=== PATIENT | female | born 1970 | race Caucasian/White ===

== ENCOUNTER 2019-08-31 15:53 | Emergency (ER) | payer BC, SELFPAY ==
[2019-08-31 16:13] VITALS: BP 103/67; PULSE 88; RESP 16; TEMP 37.6; O2SAT 98
--- NOTE | 2019-08-31 17:49 | ED.GENADULT ---
HPI - General Adult General Chief complaint: Upper Respiratory Infection Stated complaint: Pos flu Time Seen by Provider: 08/31/19 17:49 Source: patient and RN notes reviewed Mode of arrival: ambulatory Limitations: no limitations History of Present Illness HPI narrative: 48-year-old female with complaints of upper respiratory infection symptoms, body aches, fever, congestion, cough, and intermittent headache (not the worst of her life) for 2 days. Benadryl and Tylenol (last this am) with little relief. Dry cough with intermittent productive cough (unknown color phlegm). Rhinorrhea and nasal congestion. Exacerbating factors consist of smoke exposure. High fevers, highest 103F, orally with intermittent chills. No nausea, vomiting, and abdominal pain. Denies chest pain, dyspnea, coughing up blood, difficulty swallowing, jaw pain, dental pain, facial pain, foreign body sensation, and rash. Archana denies being , LMP she's Menopausal. Some parts of this dictation were generated by voice recognition software and may contain typographical and/or grammatical inaccuracies. Related Data Home Medications Medication Instructions Recorded Confirmed Sinus Pil 08/31/19 aspirin 08/31/19 escitalopram oxalate mg 08/31/19 methotrexate sodium 08/31/19 ustekinumab [Stelara] SUBCUT 08/31/19 Allergies Allergy/AdvReac Type Severity Reaction Status Date / Time metoclopramide Allergy Unknown CAN'T Verified 03/20/19 14:50 CLOSE EYES AND SHAKY Review of Systems Review of Systems: Narrative: CONSTITUTIONAL: Complains of fever, chills. Denies sweats. EYES: Denies visual changes, redness, discharge. ENT: Complains of rhinorrhea, congestion. Denies sore throat, otalgia. CARDIOVASCULAR: Denies chest pain, palpitations, edema. RESPIRATORY: Denies dyspnea, wheezing. Complains of dry cough, intermittent productive cough. GASTROINTESTINAL: Denies abdominal pain, nausea, vomiting, diarrhea. GENITOURINARY: Denies dysuria, hematuria, abnormal discharge. SKIN: Denies rash or itching. MUSCULOSKELETAL: Denies acute back pain, joint pain. Complains of myalgia. NEUROLOGIC: Denies numbness or focal weakness. Complains of intermittent EMERSON. PSYCHIATRIC: Denies anxiety or depression. All systems reviewed & are unremarkable except as noted in HPI and below. PMFSH Past Medical History Medical History (Updated 09/01/19 @ 00:00 by Vesta Dean) Crohn's disease Surgical History Surgical History (Updated 08/31/19 @ 18:05 by UBALDO Wang) Colostomy status History of bowel resection History of cholecystectomy Status post colostomy takedown Family History Family History (Updated 08/31/19 @ 18:05 by UBALDO Wang) Other No significant family history Social History Social History (Updated 08/31/19 @ 18:05 by UBALDO Wang) Smoking status: Never smoker Second hand tobacco smoke exposure: Yes Alcohol intake: never Substance use: never Living arrangements: with family Occupation/Education: occupation Gender identity (if verbalized by the patient): Female Comments At time of signature, agree with nurse past medical, surgical, social, and family history. There is no relevant family history pertinent to the presenting complaint. Exam Narrative: Exam Narrative: GENERAL: This is a well-nourished, well-developed patient, in no apparent distress. Speaks in full sentences and ambulates with steady gait without dyspnea. HEAD: normocephalic, atraumatic. EYES: PERRL. Sclera clear/white. Vision is grossly intact. EARS: External ears normal, auditory canals clear and without drainage, TMs normal without perforation. Hearing grossly intact. NOSE: External nose normal with no obvious nasal discharge, nares with moderate redness and enlarged turbinates, clear rhinorrhea. THROAT: Mucous membranes moist, posterior pharynx with PND, mild erythema, no exudate, and normal tonsils. No draina
== END 2019-08-31 18:05 | disposition home or self-care (01) ==
PROVIDERS: Emergency Provider Nurse Practitioner Family
DX: B34.9 Viral infection, unspecified (principal); K50.90 Crohn's disease, unspecified, without complications
CPT/HCPCS: 87804; 99213; G0463

== ENCOUNTER 2020-07-18 10:15 | Emergency (ER) | payer BC, SELFPAY ==
[2020-07-18 10:25] VITALS: BP 149/78; PULSE 72; RESP 16; TEMP 36.6; O2SAT 100
--- NOTE | 2020-07-18 10:46 | ED.GENADULT ---
HPI - General Adult General Chief complaint: Upper Respiratory Infection Stated complaint: Sore Throat, Ear Pain Time Seen by Provider: 07/18/20 10:46 Source: patient and RN notes reviewed Mode of arrival: ambulatory Limitations: no limitations History of Present Illness HPI narrative: 49-year-old female presents with complaints of upper respiratory infection, sneezing, right otalgia, facial pressure and congestion for the past 4 days. Archana reports symptoms increased with sore throat and sinus pressure over the past 24 hours. Benadryl with relief. No high fevers, drooling, neck or throat swelling. Pain is bilateral. Hurts to swallow. Exacerbation factors consist of eating and drinking. Rhinorrhea and nasal congestion. No voice change. No nausea, vomiting, or abdominal pain. Tolerating liquids well. Denies dyspnea, difficulty swallowing, jaw pain, dental pain, facial pain, foreign body sensation, and rash. LMP post-menopausal. Remains active. The patient reports she have not been diagnosed with COVID-19. The patient reports she is not waiting for the results of a COVID-19 lab test. The patient reports she do not have fever, weakness, or fatigue. The patient reports she do not have a worsening cough or shortness of breath. Denies chest pain. The patient reports she do not have any loss of taste and diarrhea. Denies recent traveling. Denies concerns for COVID-19 or exposures been home with limited outdoor exposure except for essential household needs, work, and return home. At this time, patient is not suspected of having COVID-19. Some parts of this dictation were generated by voice recognition software and may contain typographical and/or grammatical inaccuracies. Related Data Home Medications Medication Instructions Recorded Confirmed Sinus Pil 08/31/19 aspirin 08/31/19 escitalopram oxalate mg 08/31/19 methotrexate sodium 08/31/19 ustekinumab [Stelara] SUBCUT 08/31/19 Vitamin B12 07/18/20 albuterol sulfate 07/18/20 folic acid 07/18/20 loperamide 07/18/20 loratadine mg 07/18/20 montelukast mg 07/18/20 Allergies Allergy/AdvReac Type Severity Reaction Status Date / Time metoclopramide Allergy Unknown CAN'T Verified 03/20/19 14:50 CLOSE EYES AND SHAKY Review of Systems Review of Systems: Narrative: CONSTITUTIONAL: Denies fever, chills, sweats. EYES: Denies visual changes, redness, discharge. ENT: Complains of rhinorrhea, RT otalgia, sore throat, congestion, sneezing. CARDIOVASCULAR: Denies chest pain, palpitations, edema. RESPIRATORY: Denies dyspnea, wheezing. Complains of dry cough. GASTROINTESTINAL: Denies abdominal pain, nausea, vomiting, diarrhea. SKIN: Denies rash or itching. MUSCULOSKELETAL: Denies acute back pain, joint pain, or myalgia. NEUROLOGIC: Denies numbness or focal weakness. PSYCHIATRIC: Denies anxiety or depression. All systems reviewed & are unremarkable except as noted in HPI and below. [facility] Past Medical History Medical History (Updated 07/19/20 @ 00:00 by Vesta Dean) Crohn's disease Post-menopause Surgical History Surgical History (Updated 07/18/20 @ 11:14 by UBALDO Wang) Colostomy status History of bowel resection History of cholecystectomy History of dental surgery Status post colostomy takedown Family History Family History (Updated 07/18/20 @ 11:01 by UBALDO Wang) Other No problems noted. Father Hypertension Heart disease AAA (abdominal aortic aneurysm) Mother Diabetes mellitus Hypertension Robbin's disease Other No significant family history Social History Social History (Updated 07/18/20 @ 11:13 by UBALDO Wang) Smoking status: Former smoker Tobacco type: cigarettes Second hand tobacco smoke exposure: Yes Smoking end date: 12/19/16 Alcohol intake: former Substance use: never Gender identity (if verbalized by the patient): Female Comments
--- NOTE | 2020-07-18 11:06 | PC.NURSE ---
covid test order faxed.
--- NOTE | 2020-07-18 11:07 | PC.NURSE ---
covid test order faxed to [phone] per request of data integrity consultant.
[2020-07-18 11:08] VITALS: BP 149/78; PULSE 72; RESP 16; TEMP 36.6; O2SAT 100
== END 2020-07-18 11:12 | disposition home or self-care (01) ==
PROVIDERS: Emergency Provider Nurse Practitioner Family
DX: J02.9 Acute pharyngitis, unspecified (principal); J01.90 Acute sinusitis, unspecified; Z20.828 Contact with and (suspected) exposure to other viral communicable diseases; Z87.891 Personal history of nicotine dependence; K50.90 Crohn's disease, unspecified, without complications
CPT/HCPCS: 87081; 87804; 87880; 99213; G0463

== ENCOUNTER 2021-04-02 16:16 | Emergency (ER) | payer BC, SELFPAY ==
--- NOTE | ~2021-04-02 | XR_ITS ---
XR chest 2V Surgical clips, right upper quadrant, likely due to cholecystectomy. DATE: 04/02/2021 16:52 INDICATION: Productive cough, congestion. Past smoker. TECHNIQUE: 2 views COMPARISON: 06/10/2013 PA and lateral chest FINDINGS: Normal heart size. No hilar or mediastinal enlargement. No pulmonary infiltrate or consolid ation, pleural effusion or pulmonary vascular congestion or pneumothorax. Probable cholecystectomy. Status post anterior abdominal wall mesh repair. IMPRESSION: No active cardiopulmonary disease Reviewed, dictated and finalized at location A.
[2021-04-02 16:28] VITALS: BP 125/74; PULSE 106; RESP 16; TEMP 38.2; O2SAT 95
--- NOTE | 2021-04-02 16:28 | ED.URI ---
HPI - URI/Sore Throat General Chief Complaint: Upper Respiratory Infection Stated Complaint: Ear Pain,Congestion Time Seen by Provider: 04/02/21 16:28 Source: patient and RN notes reviewed Mode of arrival: ambulatory Limitations: no limitations History of Present Illness HPI Narrative: 50 presents to the [facility] with complaints of I do not feel well. Has had congestion, runny nose, cough. Has a history of asthma, Crohn's. Has taken Tylenol for fever. Symptoms started yesterday Has been using her albuterol inhaler. Patient has concerns for Covid. First vaccine last week. Related Data Home Medications Medication Instructions Recorded Confirmed Sinus Pil 08/31/19 aspirin 08/31/19 escitalopram oxalate mg 08/31/19 methotrexate sodium 08/31/19 ustekinumab [Stelara] SUBCUT 08/31/19 Vitamin B12 07/18/20 albuterol sulfate 07/18/20 folic acid 07/18/20 loperamide 07/18/20 loratadine mg 07/18/20 montelukast mg 07/18/20 Allergies Allergy/AdvReac Type Severity Reaction Status Date / Time metoclopramide Allergy Unknown CAN'T Verified 04/02/21 16:41 CLOSE EYES AND SHAKY Review of Systems Review of Systems: All systems reviewed & are unremarkable except as noted in HPI and below Constitutional: Constitutional: Reports as per HPI, Denies chills and Reports fever(s) Eyes: Eyes: Reports no additional eye complaints ENT: Reports system reviewed and no additional complaints, except as documented Cardiovascular: Cardiovascular: Reports no additional cardiovascular complaints Respiratory: Respiratory: Reports as per HPI, Reports cough, Reports dyspnea and Reports wheezing Gastrointestinal: Gastrointestinal: Reports no additional gastrointestinal complaints, Denies abdominal pain, Denies nausea and Denies vomiting Musculoskeletal: Musculoskeletal: Reports no additional musculoskeletal complaints Integumentary/Breasts: Skin/Breast: Reports system reviewed and no additional complaints, except as docu Neurologic: Reports system reviewed and no additional complaints, except as documented Psychiatric: Psychiatric: Reports no additional psychiatric complaints Allergic/Immunologic: Allergic/Immunologic: Reports no additional allergic/immunologic complaints [facility] Past Medical History Medical History (Updated 04/02/21 @ 17:43 by Celia Christopher) Crohn's disease Post-menopause Surgical History Surgical History Colostomy status History of bowel resection History of cholecystectomy History of dental surgery Status post colostomy takedown Family History Family History Other No problems noted. Father Hypertension Heart disease AAA (abdominal aortic aneurysm) Mother Diabetes mellitus Hypertension Robbin's disease Other No significant family history Social History Social History Smoking status: Former smoker Tobacco type: cigarettes Second hand tobacco smoke exposure: Yes Smoking end date: 12/19/16 Alcohol intake: former Substance use: never Gender identity (if verbalized by the patient): Female Sexual Orientation (if Verbalized by the Patient): Straight or Heterosexual Comments at the time of my signature, I reviewed and agree with the nursing past medical, surgical, social, and family history. There is no relevant family history pertinent to the patient complaint. Exam Const: General: alert and ill appearing acutely Nutritional Appearance: well nourished Orientation/consciousness: patient oriented x3 HENMT: Head: normal to inspection Ears: external ears normal, TM's normal bilaterally and EAC's normal Eyes: Pupils: Equal, round and reactive pupils present Neck: Neck: normal visual inspection, no lymphadenopathy and no meningeal signs Chest: Chest palpation & inspection: normal inspection of the
[2021-04-02 16:50] VITALS: BP 138/70; PULSE 103; RESP 25; O2SAT 95
[2021-04-02] MEDS: predniSONE 20 MG TABLET 40 MG PO (16:52)
[2021-04-02] MEDS: ALBUTEROL SULFATE NEB 2.5 MG/3 ML INH INHALATION (16:52)
[2021-04-02] MEDS: IPRATROPIUM BR 0.02% INH SOLN 0.5 MG/2.5 ML VIAL INHALATION (16:54)
[2021-04-02 17:38] VITALS: BP 124/68; PULSE 96; RESP 22; TEMP 37.8; O2SAT 97
[2021-04-02 17:57] VITALS: TEMP 37.8
[2021-04-02] MEDS: ACETAMINOPHEN 500 MG TABLET 1000 MG PO (17:57)
[2021-04-03 22:41] LABS: SARS-CoV-2 RNA PCR Negative
== END 2021-04-02 18:08 | disposition home or self-care (01) ==
PROVIDERS: Emergency Provider Nurse Practitioner
DX: B34.9 Viral infection, unspecified (principal); J40 Bronchitis, not specified as acute or chronic; Z87.891 Personal history of nicotine dependence; J45.909 Unspecified asthma, uncomplicated; K50.90 Crohn's disease, unspecified, without complications
CPT/HCPCS: 71046; 87081; 87880; 99213; A9270; C9803; G0463; J7512; U0003; U0005

== ENCOUNTER 2021-08-07 15:50 | Emergency (ER) | payer BC, SELFPAY ==
[2021-08-07 15:59] VITALS: BP 152/81; PULSE 81; RESP 16; TEMP 37.3; O2SAT 99
--- NOTE | 2021-08-07 16:06 | ED.URI ---
HPI - URI/Sore Throat General Chief Complaint: Upper Respiratory Infection Stated Complaint: sore throat Time Seen by Provider: 08/07/21 16:06 Source: patient Mode of arrival: ambulatory Limitations: no limitations History of Present Illness HPI Narrative: Archana Riley is a 50 yo female with a PMH of Crohn's, depression, who has been treated recently for for both bronchitis and with a Z-Ramon, steroids from PCP who is now here with sore throat that she claims is swelling that just started this afternoon. She does appear to have swollen lymph nodes and states she feels like her throat is on fire. We will do strep test Related Data Home Medications Medication Instructions Recorded Confirmed aspirin 08/31/19 escitalopram oxalate mg 08/31/19 methotrexate sodium 08/31/19 ustekinumab [Stelara] SUBCUT 08/31/19 Vitamin B12 07/18/20 albuterol sulfate 07/18/20 folic acid 07/18/20 Allergies Allergy/AdvReac Type Severity Reaction Status Date / Time metoclopramide Allergy Unknown CAN'T Verified 08/07/21 15:54 CLOSE EYES AND SHAKY Review of Systems Review of Systems: CONSTITUTIONAL: Denies fever, chills, sweats. EYES: Denies visual changes, redness, discharge. ENT: Denies rhinorrhea, congestion, has sore throat, otalgia. Enlarged lymph nodes CARDIOVASCULAR: Denies chest pain, palpitations, edema. RESPIRATORY: Denies dyspnea, wheezing, cough GASTROINTESTINAL: Denies abdominal pain, nausea, vomiting, diarrhea. GENITOURINARY: Denies dysuria, hematuria, abnormal discharge SKIN: Denies rash or itching. NEUROLOGIC: Denies numbness, or focal weakness. PSYCHIATRIC: Denies anxiety or depression. [facility] Past Medical History Medical History Crohn's disease Post-menopause Surgical History Surgical History Colostomy status History of bowel resection History of cholecystectomy History of dental surgery Status post colostomy takedown Family History Family History Other No problems noted. Father Hypertension Heart disease AAA (abdominal aortic aneurysm) Mother Diabetes mellitus Hypertension Robbin's disease Other No significant family history Social History Social History Smoking status: Former smoker Tobacco type: cigarettes Second hand tobacco smoke exposure: Yes Smoking end date: 12/19/16 Alcohol intake: former Substance use: never Gender identity (if verbalized by the patient): Female Sexual Orientation (if Verbalized by the Patient): Straight or Heterosexual Comments At time of signature, I agree with nursing past medical, surgical, social and family history. There is no relevant family history pertinent to the presenting complaint. Exam Narrative: GENERAL: This is a well-nourished, well-developed patient, in mild distress. HEAD: normocephalic, atraumatic. EYES:. Sclera clear/white. Vision is grossly intact. EARS: External ears normal, auditory canals clear and without drainage, TMs normal without perforation. Hearing grossly intact. NOSE: External nose normal without nasal discharge, nares without redness, no rhinorrhea. THROAT: Mucous membranes moist, posterior pharynx mild erythema and she does have submandibular lymph enlargement NECK: Neck supple, tender LN CARDIOVASCULAR: Regular rate and rhythm without murmurs, gallops, or rubs. RESPIRATORY: Clear to auscultation. Breath sounds equal bilaterally. No wheezes, rales, or rhonchi. GASTROINTESTINAL: Abdomen soft, non-tender, SKIN: warm, intact with no suspicious lesions or rash, good texture and turgor. NEURO: awake, alert, and oriented to person, place and time. There were no obvious focal neurologic abnormalities. Steady gait EXTREMITIES: Normal range of motion. BACK: Nontender wi
== END 2021-08-07 16:40 | disposition home or self-care (01) ==
PROVIDERS: Emergency Provider Nurse Practitioner
DX: I88.9 Nonspecific lymphadenitis, unspecified (principal); Z87.891 Personal history of nicotine dependence; K50.90 Crohn's disease, unspecified, without complications
CPT/HCPCS: 87081; 87880; 99213; G0463

== ENCOUNTER 2021-10-23 17:14 | Emergency (ER) | payer BC, SELFPAY ==
--- NOTE | 2021-10-23 17:19 | ED.EAR ---
HPI - Ear Problem General Chief complaint: Ear Stated complaint: ear pain Time Seen by Provider: 10/23/21 17:19 Source: patient Mode of arrival: ambulatory Limitations: no limitations History of Present Illness HPI Narrative: Ms. Salmon is a 50-year-old female patient presenting to the clinic today with complaints of right ear pain, cough, nasal congestion x2 to 3 days. She reports she has had a low-grade temperature as well 99 5 ?F. She denies any known exposure to anyone with Covid or influenza. When asked she stated she did have a scratchy throat as well. She reports that she has been exposed to strep. Related Data Home Medications Medication Instructions Recorded Confirmed aspirin 08/31/19 methotrexate sodium 08/31/19 ustekinumab [Stelara] SUBCUT 08/31/19 albuterol sulfate 07/18/20 folic acid 07/18/20 Allergies Allergy/AdvReac Type Severity Reaction Status Date / Time metoclopramide Allergy Unknown CAN'T Verified 08/07/21 15:54 CLOSE EYES AND SHAKY Review of Systems Review of Systems: Pertinent positives per HPI. Patient denies any rash, headache, visual changes, dizziness, cough, shortness of breath, chest pain, palpitations, nausea, vomiting, diarrhea, constipation, abdominal pain, or any urinary issues. [facility] Past Medical History Medical History Crohn's disease Post-menopause Surgical History Surgical History Colostomy status History of bowel resection History of cholecystectomy History of dental surgery Status post colostomy takedown Family History Family History Other No problems noted. Father Hypertension Heart disease AAA (abdominal aortic aneurysm) Mother Diabetes mellitus Hypertension Robbin's disease Other No significant family history Social History Social History Smoking status: Former smoker Tobacco type: cigarettes Second hand tobacco smoke exposure: Yes Smoking end date: 12/19/16 Alcohol intake: former Substance use: never Gender identity (if verbalized by the patient): Female Sexual Orientation (if Verbalized by the Patient): Straight or Heterosexual Comments At the time of my signature, I reviewed and agree with the nursing past medical, surgical, social, and family history. There is no relevant family history pertinent to the patient complaint. Exam Narrative: General: Well-developed, obese, in no apparent distress Head: Normocephalic, atraumatic Eyes: Pupils equally round and reactive to light bilaterally, EOM intact, sclera and conjunctive clear, no discharge, lids normal Ears: Right TMs intact, dull with mild bulging and fluid noted behind the TM, left TM intact and clear ear canals clear, no drainage, grossly hearing normal. Nose: Nares patent, clear nasal discharge, mild inflammation, no sinus tenderness. Mouth: Oropharynx without lesions or masses, good dentition, MMM. Mild enlargement of tonsils with exudate noted to the right tonsil Neck: Supple, trachea midline, positive enlargement of anterior cervical nodes, no thyroid masses or goiter palpable. Cardio: Regular rate and rhythm, s1 and s2 normal, no murmur appreciated. Resp: Clear to auscultation bilaterally anteriorly and posteriorly, no rhonchi, rales, wheezing or rubs Course Course Emergency Course: Portions of this record may have been created with voice recognition software. Level of Care: Express Care Visit Vital Signs Vital signs: Vital signs reviewed Medical Decision Making MDM Narrative Medical decision making narrative: At the time of visit patient is resting comfortably on exam table. She reports some headache, right ear pain, cough, nasal congestion, and sore throat. Strep screen was compl
[2021-10-23 17:24] VITALS: BP 150/91; PULSE 70; RESP 16; TEMP 36.1; O2SAT 98
[2021-10-23 17:37] VITALS: BP 150/91; PULSE 70; RESP 16; TEMP 36.1; O2SAT 98
== END 2021-10-23 17:59 | disposition home or self-care (01) ==
PROVIDERS: Emergency Provider Nurse Practitioner Family
DX: J06.9 Acute upper respiratory infection, unspecified (principal); H65.01 Acute serous otitis media, right ear; Z87.891 Personal history of nicotine dependence; K50.90 Crohn's disease, unspecified, without complications
CPT/HCPCS: 87081; 87880; 99213; G0463

== ENCOUNTER 2023-08-06 19:20 | Emergency (ER) | payer BC, SELFPAY ==
--- NOTE | 2023-08-06 19:31 | ED.URI ---
HPI - URI/Sore Throat General Chief Complaint: Upper Respiratory Infection Stated Complaint: left ear pain,throat sore Time Seen by Provider: 08/06/23 19:31 Source: patient Mode of arrival: ambulatory Limitations: no limitations History of Present Illness HPI Narrative: Archana is a 52-year-old female patient presenting to the clinic today with complaints of left ear pain, headache, and sore throat. Reports that the ear pain is been going on for 1 week however she developed the headache and sore throat over the last 1-2 days. No fever chills MD elicited complaint: sore throat and nasal congestion Related Data Home Medications Medication Instructions Recorded Confirmed aspirin 81 mg chewable tablet 81 mg DIRECTED 08/31/19 08/06/23 methotrexate sodium 2.5 mg tablet 2.5 mg DIRECTED 08/31/19 08/06/23 ustekinumab 90 mg/mL subcutaneous 90 mg subcut DIRECTED 08/31/19 08/06/23 syringe (Stelara) albuterol sulfate 2.5 mg/3 mL 2.5 mg DIRECTED 07/18/20 08/06/23 (0.083 %) solution for nebulization folic acid 1 mg tablet 1 mg DIRECTED 07/18/20 08/06/23 hydrochlorothiazide 12.5 mg tablet 12.5 mg PO DAILY 08/06/23 08/06/23 loperamide 2 mg capsule 2 mg PO DAILY 08/06/23 08/06/23 Allergies Allergy/AdvReac Type Severity Reaction Status Date / Time metoclopramide Allergy Unknown CAN'T Verified 08/06/23 19:30 CLOSE EYES AND SHAKY Review of Systems Review of Systems: Pertinent positives per HPI. Patient denies any fever, chills, rash, visual changes, dizziness, shortness of breath, chest pain, palpitations, nausea, vomiting, diarrhea, constipation, abdominal pain, or any urinary issues. [facility] Past Medical History Medical History Crohn's disease Post-menopause Surgical History Surgical History Colostomy status History of bowel resection History of cholecystectomy History of dental surgery Status post colostomy takedown Family History Family History Other No problems noted. Father Hypertension Heart disease AAA (abdominal aortic aneurysm) Mother Diabetes mellitus Hypertension Robbin's disease Other No significant family history Social History Social History Smoking status: Former smoker Tobacco type: cigarettes Second hand tobacco smoke exposure: Yes Smoking end date: 12/19/16 Alcohol intake: former Substance use: never Living arrangements: with family Occupation/Education: occupation Gender identity (if verbalized by the patient): Female Sexual Orientation (if Verbalized by the Patient): Straight or Heterosexual Comments At the time of my signature, I reviewed and agree with the nursing past medical, surgical, social, and family history. There is no relevant family history pertinent to the patient complaint. Exam Narrative: General: Well-developed, well nourished, in no apparent distress Head: Normocephalic, atraumatic Eyes: Pupils equally round and reactive to light bilaterally, EOM intact, sclera and conjunctive clear, no discharge, lids normal Ears: TMs intact and congested, ear canals clear, no drainage, grossly hearing normal. Nose: Nares patent, clear discharge, no inflammation, no sinus tenderness. Mouth: Oral pharynx mildly red without lesions or masses, good dentition, MMM. Neck: Supple, trachea midline, no enlargement of anterior or posterior cervical nodes, no thyroid masses or goiter palpable. Cardio: Regular rate and rhythm, s1 and s2 normal, no murmur appreciated. Resp: Clear to auscultation bilaterally, no rhonchi, rales, wheezing or rubs Course Course Emergency Course: Portions of this record may have been created with voice recognition software. Level of Care: [facility] Care Visit [facility]
[2023-08-06 19:35] VITALS: BP 139/82; PULSE 78; RESP 16; TEMP 36.8; O2SAT 97
== END 2023-08-06 20:08 | disposition home or self-care (01) ==
PROVIDERS: Emergency Provider Nurse Practitioner Family
DX: J06.9 Acute upper respiratory infection, unspecified (principal); J02.9 Acute pharyngitis, unspecified; H69.92 Unspecified Eustachian tube disorder, left ear; Z87.891 Personal history of nicotine dependence; K50.90 Crohn's disease, unspecified, without complications; Z79.82 Long term (current) use of aspirin
CPT/HCPCS: 87081; 87880; 99213; G0463

== ENCOUNTER 2023-09-01 08:46 | Emergency (ER) | payer BC, SELFPAY ==
[2023-09-01 09:08] VITALS: BP 140/66; PULSE 74; RESP 16; TEMP 36.9; O2SAT 98
--- NOTE | 2023-09-01 09:38 | ED.EYEPROB ---
HPI - Eye Problem General Stated complaint: Left Eye Irritation Source: patient Mode of arrival: ambulatory Limitations: no limitations History of Present Illness HPI Narrative: 52-year-old female presented for complaint of left eye irritation for about 4 days. She states this started with itching and felt like something was in the eye, and admits to rubbing the eye. The eye his become more reddened, has had blurred vision and light sensitivity, and clear drainage. She states the eye was crusted shut this morning. Using Systane eye drops and allergy drops. Denies headache, n/v/d/f/c. chief complaint: eye pain Related Data Home Medications Medication Instructions Recorded Confirmed aspirin 81 mg chewable tablet 81 mg DIRECTED 08/31/19 09/01/23 methotrexate sodium 2.5 mg tablet 2.5 mg DIRECTED 08/31/19 09/01/23 ustekinumab 90 mg/mL subcutaneous 90 mg subcut DIRECTED 08/31/19 09/01/23 syringe (Stelara) albuterol sulfate 2.5 mg/3 mL 2.5 mg DIRECTED 07/18/20 09/01/23 (0.083 %) solution for nebulization folic acid 1 mg tablet 1 mg DIRECTED 07/18/20 09/01/23 hydrochlorothiazide 12.5 mg tablet 12.5 mg PO DAILY 08/06/23 09/01/23 loperamide 2 mg capsule 2 mg PO DAILY 08/06/23 09/01/23 Allergies Allergy/AdvReac Type Severity Reaction Status Date / Time metoclopramide Allergy Unknown CAN'T Verified 09/01/23 09:16 CLOSE EYES AND SHAKY Review of Systems Review of Systems: CONSTITUTIONAL: Denies body aches, fever, chills EYES:Endorses redness and pain to left eye, FB sensation, photophobia. Denies visual changes ENT: Denies rhinorrhea, congestion, sore throat, or otalgia. CARDIOVASCULAR: Denies chest pain, palpitations RESPIRATORY: Denies cough or dyspnea. GASTROINTESTINAL: Denies abdominal pain, nausea, vomiting, or diarrhea. SKIN: Denies rash, itching, or wounds. MUSCULOSKELETAL: Denies back pain, joint pain, or myalgia. NEUROLOGIC: Denies headache, numbness, tingling, or weakness. All systems reviewed & are unremarkable except as noted in HPI and below PMFSH Past Medical History Medical History Crohn's disease Post-menopause Surgical History Surgical History Colostomy status History of bowel resection History of cholecystectomy History of dental surgery Status post colostomy takedown Family History Family History Other No problems noted. Father Hypertension Heart disease AAA (abdominal aortic aneurysm) Mother Diabetes mellitus Hypertension Robbin's disease Other No significant family history Social History Social History (Updated 09/01/23 @ 10:02 by Mehnaz Grider APRN) Smoking packs per day: 1 Smoking cigarettes per day: 20.0 Smoking status: Current every day smoker Tobacco type: cigarettes Second hand tobacco smoke exposure: Yes Smoking end date: 12/19/16 Alcohol intake: former Substance use: never Living arrangements: with family Occupation/Education: occupation Gender identity (if verbalized by the patient): Female Sexual Orientation (if Verbalized by the Patient): Straight or Heterosexual Comments At time of signature, I have reviewed and agree with nursing past medical, surgical, social and family history unless otherwise noted. Please see nursing chart for further information. There is no relevant family history pertinent to the presenting complaint Exam Narrative: GENERAL: Well-appearing HEAD: Normocephalic, atraumatic. EYES: Left conjunctival injection, no drainage; no eye lid swelling/redness. PERRLA, EOMI. Lid eversion shows no FB. Wood's lamp exam shows corneal abrasion at 6:00 a.m. position over the pupil. ENT: Mucous membranes pink and moist. CHEST: Wheezing throughout HEART: Regular rate and rhythm. SKIN: Warm, dry, no rash. No
== END 2023-09-01 10:00 | disposition home or self-care (01) ==
PROVIDERS: Emergency Provider Nurse Practitioner Family
DX: S05.02XA Injury of conjunctiva and corneal abrasion without foreign body, left eye, initial encounter (principal); X58.XXXA Exposure to other specified factors, initial encounter; K50.90 Crohn's disease, unspecified, without complications
CPT/HCPCS: 99213; A9270; G0463

== ENCOUNTER 2024-02-26 16:20 | Emergency (ER) | payer OTHER, SELFPAY ==
[2024-02-26 16:29] VITALS: BP 144/70; PULSE 71; RESP 16; TEMP 37.2; O2SAT 99
--- NOTE | 2024-02-26 16:29 | ED.URI ---
HPI - URI/Sore Throat General Chief Complaint: Upper Respiratory Infection Stated Complaint: Sinus Time Seen by Provider: 02/26/24 16:29 Source: patient, RN notes reviewed and old records reviewed Mode of arrival: ambulatory Limitations: no limitations History of Present Illness HPI Narrative: 53-year-old female presents to the [facility] with complaints of sinus congestion and a cough that started when she woke up this morning. Patient reports that she is a pack-a-day smoker. States that she did take a cold medication and went back to sleep today. Requesting work note Related Data Home Medications Medication Instructions Recorded Confirmed loperamide 2 mg capsule 2 mg PO DAILY 08/06/23 02/26/24 hydrochlorothiazide 12.5 mg tablet 12.5 mg PO DAILY 02/26/24 02/26/24 loratadine 10 mg tablet 10 mg PO DAILY 02/26/24 02/26/24 Allergies Allergy/AdvReac Type Severity Reaction Status Date / Time metoclopramide Allergy Intermediate CAN'T Verified 02/26/24 16:29 CLOSE EYES AND SHAKY Review of Systems Review of Systems: All systems reviewed & are unremarkable except as noted in HPI and below Constitutional: Constitutional: Reports no additional constitutional complaints Eyes: Eyes: Reports no additional eye complaints ENT: Reports as per HPI and Reports nasal congestion Cardiovascular: Cardiovascular: Reports no additional cardiovascular complaints, Denies chest pain and Denies dyspnea Respiratory: Respiratory: Reports as per HPI, Denies chest congestion, Reports cough, Denies dyspnea and Reports wheezing Gastrointestinal: Gastrointestinal: Reports no additional gastrointestinal complaints, Denies abdominal pain, Denies nausea and Denies vomiting Musculoskeletal: Musculoskeletal: Reports no additional musculoskeletal complaints Integumentary/Breasts: Skin/Breast: Reports system reviewed and no additional complaints, except as docu Neurologic: Reports system reviewed and no additional complaints, except as documented Psychiatric: Psychiatric: Reports no additional psychiatric complaints Allergic/Immunologic: Allergic/Immunologic: Reports no additional allergic/immunologic complaints [facility] Past Medical History Medical History Crohn's disease Post-menopause Surgical History Surgical History Colostomy status History of bowel resection History of cholecystectomy History of dental surgery Status post colostomy takedown Family History Family History Other No problems noted. Father Hypertension Heart disease AAA (abdominal aortic aneurysm) Mother Diabetes mellitus Hypertension Robbin's disease Other No significant family history Social History Social History Smoking packs per day: 1 Smoking cigarettes per day: 20.0 Smoking status: Current every day smoker Tobacco type: cigarettes Second hand tobacco smoke exposure: Yes Smoking end date: 12/19/16 Alcohol intake: former Substance use: never Living arrangements: with family Occupation/Education: occupation Gender identity (if verbalized by the patient): Female Sexual Orientation (if Verbalized by the Patient): Straight or Heterosexual Comments At the time of my signature, I reviewed and agree with the nursing past medical, surgical, social, and family history. There is no relevant family history pertinent to the patient complaint. Exam Const: General: cooperative, healthy appearing, comfortable, no acute distress, well developed, alert and well nourished Nutritional Appearance: well nourished Orientation/consciousness: patient oriented x3 Limitations: no limitations HENMT: Head: normal to inspection Ears: hearing grossly normal bilaterally, external ears normal, TM's normal bilaterally
[2024-02-26 16:30] VITALS: BP 144/70; PULSE 71; RESP 16; TEMP 37.2; O2SAT 99
== END 2024-02-26 17:07 | disposition home or self-care (01) ==
PROVIDERS: Emergency Provider Nurse Practitioner; PCP Nurse Practitioner Family
DX: J40 Bronchitis, not specified as acute or chronic (principal); Z20.822 Contact with and (suspected) exposure to COVID-19; K50.90 Crohn's disease, unspecified, without complications; F17.200 Nicotine dependence, unspecified, uncomplicated
CPT/HCPCS: 87426; 99213; G0463

== ENCOUNTER 2024-07-01 08:47 | Emergency (ER) | payer SELFPAY ==
--- NOTE | 2024-07-01 08:49 | ED_ITS ---
HPI - Skin/Abscess/Foreign Bdy General Chief complaint: Skin/Abscess/Foreign Body Stated complaint: boil on buttocks Time Seen by Provider: 07/01/24 09:10 Source: patient, RN notes reviewed and old records reviewed Mode of arrival: ambulatory Limitations: no limitations History of Present Illness HPI narrative: 53-year-old female with a history of Crohn's presents with an abscess to the right side of the anus. States it started on Thursday, 4 days ago. Has history of abscesses in the same area. Patient reports pain when she sitting. No treatment prior to arrival Due to the concern of a rectal abscess advised patient to go to the emergency room which she is declining at this time Onset (ago): day(s) (4) Related Data Home Medications ?Medication ?Instructions ?Recorded ?Confirmed ?Last Taken ?Type loperamide 2 mg capsule 2 mg PO DAILY 08/06/23 02/26/24 Unknown History hydrochlorothiazide 12.5 mg tablet 12.5 mg PO DAILY 02/26/24 02/26/24 Unknown History loratadine 10 mg tablet 10 mg PO DAILY 02/26/24 02/26/24 Unknown History Allergies Allergy/AdvReac Type Severity Reaction Status Date / Time metoclopramide Allergy Intermediate CAN'T Verified 02/26/24 16:29 CLOSE EYES AND SHAKY Review of Systems Review of Systems: All systems reviewed & are unremarkable except as noted in HPI and below Constitutional: Constitutional: Reports no additional constitutional complaints ENT: Reports system reviewed and no additional complaints, except as documented Cardiovascular: Cardiovascular: Reports no additional cardiovascular complaints, Denies chest pain and Denies dyspnea Respiratory: Respiratory: Reports no additional respiratory complaints, Denies chest congestion, Denies cough and Denies dyspnea Gastrointestinal: Gastrointestinal: Reports as per HPI, Denies abdominal pain, Denies nausea, Denies vomiting and Reports other (rectal pain/ abscess) Integumentary/Breasts: Skin/Breast: Reports system reviewed and no additional complaints, except as docu PMFSH Past Medical History Medical History Post-menopause Crohn's disease Surgical History Surgical History History of dental surgery History of cholecystectomy History of bowel resection Colostomy status Status post colostomy takedown Family History Family History Other No problems noted. Father Hypertension Heart disease AAA (abdominal aortic aneurysm) Mother Diabetes mellitus Hypertension Robbin's disease Other No significant family history Social History Social History Smoking packs per day: 1 Smoking cigarettes per day: 20.0 Smoking status: Current every day smoker Tobacco type: cigarettes Second hand tobacco smoke exposure: Yes Smoking end date: 12/19/16 Alcohol intake: former Substance use: never Living arrangements: with family Occupation/Education: occupation Gender identity (if verbalized by the patient): Female Sexual Orientation (if Verbalized by the Patient): Straight or Heterosexual Comments At the time of my signature, I reviewed and agree with the nursing past medical, surgical, social, and family history. There is no relevant family history pertinent to the patient complaint. Exam Const: General: cooperative, healthy appearing, comfortable, no acute distress, well developed, alert and well nourished Nutritional Appearance: well nourished Orientation/consciousness: patient oriented x3 Limitations: no limitations HENMT: Head: normal to inspection Face/Nose/Sinus: normal facial exam and face symmetric Face and sinus: normal facial exam and face symmetric Eyes: General: appearance normal, both eyes and all related structures Neck: Neck: normal visual inspection and full ROM Chest: Chest palpation & inspection: normal inspection of the chest Resp: Effort & Inspection: normal respiratory effort and able to speak in complete sentences Cardio: Rate: regular rate GI: Rectal Exam: abscess (Possible abscess 2 cm fluctuant, tender area right side of anus), No Rectal prolapse, No fecal impaction and tenderness (Low right side of rectum) Skin: General skin exam: normal color and no rashes or lesions noted Neuro: General: patient oriented x3, gait normal, tone normal, moves all extremities and no meningeal signs Cognition (Neuro): normal cognition Speech: normal speech Gait exam (Neuro): Normal gait present Extrem: General: normal to inspection, full ROM, capillary refill normal and normal gait Psych: Appearance: grossly normal and well kempt Mental Status: mental status grossly normal Speech and movement: Normal speech and movement present and Clear speech present Affect: normal affect Attitude: cooperative Course Course Level of Care: Express Care Visit Vital Signs Vital signs: Vital Signs Temperature 96.3 F L 07/01/24 08:59 Respiratory Rate 16 07/01/24 08:59 Blood Pressure 114/60 07/01/24 08:59 Pulse Oximetry 98 07/01/24 08:59 Oxygen Delivery Room Air 07/01/24 08:59 Temperature 96.3 F L 07/01/24 08:59 Respiratory Rate 16 07/01/24 08:59 Blood Pressure 114/60 07/01/24 08:59 Pulse Oximetry 98 07/01/24 08:59 Oxygen Delivery Room Air 07/01/24 08:59 Reviewed MDM - Skin/Abscess/Foreign Bdy MDM Narrative Medical decision making narrative: Patient sitting in exam room. Nontoxic, vitals stable. Patient presents with concerns for a rectal abscess. Area to the right side of the anus is noted to be possible abscess, tender, swollen, fluctuant. Discussed with patient transfer to the ER for further evaluation and treatment, patient declined at this time stating that she needs to take care of her father. Discussed risks of sepsis, increased pain, it worsening infection. Discussed antibiotics do not work on an abscess unless it is 1st drained. Patient is adamant about not going to the ER at this time. States that she will go later today when she finishes taking care of her father. Discussed transfer with patient to go to the ER, she is declining The instructions also include specific and strict return/GO TO THE ER. All questions have been answered, and the patient deny any further questions. Some parts of this dictation were generated by voice recognition software and may contain typographical and/or grammatical inaccuracies. Differential Diagnosis Differential diagnosis: Likely abscess of skin or subcutaneous tissue and other (Rectal abscess, hemorrhoid) Critical Care Time Critical Care Time Critical Care Time: No Discharge Plan Discharge Clinical Impression: Abscess of anal or rectal region Patient Disposition: Left Against Medical Advice Condition: Stable Patient Language: Macedonian Prescriptions: No Action loperamide 2 mg capsule 2 mg PO DAILY loratadine 10 mg Tablet 10 mg PO DAILY hydrochlorothiazide 12.5 mg tablet 12.5 mg PO DAILY albuterol sulfate 90 mcg/actuation HFA aerosol inhaler 2 puff inhalation QID PRN (Reason: shortness of breath or wheezing) Qty: 6.7 0RF (DME) Aerochamber MV Spacer See Rx Instructions .Route Qty: 1 0RF Rx Instructions: As directed prednisone 20 mg tablet See Rx Instructions .Route .COMPLEX Qty: 9 0RF Rx Instructions: Take 40 mg daily for 3 days, 20 mg daily for 3 days Follow-up/Referrals: PHYSICIAN NOT ON STAFF,NONSTAFF [Primary Care Provider] -
[2024-07-01 08:59] VITALS: BP 114/60; RESP 16; TEMP 35.7; O2SAT 98
[2024-07-01 09:13] VITALS: PULSE 59
== END 2024-07-01 09:24 | disposition left against medical advice (07) ==
PROVIDERS: Emergency Provider Nurse Practitioner
DX: K61.0 Anal abscess (principal); Z87.891 Personal history of nicotine dependence; K50.90 Crohn's disease, unspecified, without complications
CPT/HCPCS: 99211; G0463